=== PATIENT | female | born 1980 | race Caucasian/White ===

== ENCOUNTER 2018-06-15 13:36 | Emergency (ER) | payer MEDICAID, OTHER ==
[~2018-06-15] VITALS: Wt 101.1 kg
[~2018-06-15 13:36] MED LIST: CEPH-443 PO; PRED20TA PO; PREN1CAP; PREN1TAB12
[2018-06-15 13:47] VITALS: BP 156/74; PULSE 109; RESP 20
[2018-06-15] MEDS ORDERED: ACETAMINOPHEN 500 MG TAB PO STA (14:53)
[2018-06-15] MEDS ORDERED: ONDANSETRON (ODT) 4 MG TAB ODT STA (14:53)
[2018-06-15] MEDS ORDERED: DICYCLOMINE 10 MG CAP PO ONE (15:00)
[2018-06-15] MEDS ORDERED: DICY10CA40 PO (15:03)
[2018-06-15] MEDS ORDERED: ACET500C5 PO (15:03)
[2018-06-15] MEDS ORDERED: ONDA4TAB14 PO (15:03)
--- NOTE | 2018-06-15 15:08 | ERD ---
ER Documentation Chief Complaint Chief Complaint NVD, L sided AP, 'bladder pain' since last PM. denies dysuria. HPI This is a 38-year-old female with a nonsignificant past medical history presents ED with complaints of nausea vomiting and diarrhea since last night. Patient admits to having multiple episodes of nonbilious nonbloody vomiting as well as roughly 10 episodes of nonbloody is diarrhea. Admits to some abdominal cramping associated with diarrhea. Patient denies eating any new food groups last night or anything questionable. Denies fever, chills, dysuria, melena, hematochezia, hemoptysis, hematemesis, chest pain, shortness breath and all other symptoms. Denies urinary symptoms despite what chief complaint states. ROS All systems reviewed and are negative except as per history of present illness. Medications Home Meds Active Scripts Acetaminophen* (Tylophen*) 500 Mg Capsule, 1 CAP PO Q6H PRN for PAIN AND OR ELEVATED TEMP, #20 CAP Prov:LIZZY CAMERON PA-C 06/15/18 Dicyclomine HCl (Dicyclomine HCl) 10 Mg Capsule, 10 MG PO TID PRN for ABDOMINAL CRAMPING, #20 CAP Prov:LIZZY CAMERON PA-C 06/15/18 Ondansetron (Ondansetron Odt) 4 Mg Tab.rapdis, 4 MG PO Q6H PRN for NAUSEA AND/OR VOMITING, #10 TAB Prov:LIZZY CAMERON PA-C 06/15/18 Cephalexin* (Keflex*) 500 Mg Capsule, 500 MG PO QID for 5 Days, CAP Prov:KHURRAM DUGGAN DO 10/28/15 Prednisone* (Prednisone*) 20 Mg Tab, 60 MG PO DAILY for 3 Days, TAB Prov:LEJORGE LUISOSAPOSTOLOS ALeila DO 10/28/15 Reported Medications Vit/Iron,Carb/Ivan/Fa (Prena-Cap Capsule) 1 Cap Capsule 11/23/09 Vit/Fe Fumarate/Fa ( 1-1 Tablet) 1 Tab Tablet 11/23/09 Allergies Allergies: Coded Allergies: No Known Allergy (Verified Allergy, Unknown, 11/23/09) PMhx/Soc Medical and Surgical Hx: pt denies Medical Hx, pt denies Surgical Hx History of Surgery: No Anesthesia Reaction: No Hx Neurological Disorder: No Hx Respiratory Disorders: No Hx Cardiac Disorders: No Hx Psychiatric Problems: No Hx Miscellaneous Medical Probl: No Hx Alcohol Use: No Hx Substance Use: No Hx Tobacco Use: No Smoking Status: Never smoker Physical Exam Vitals Vital Signs Date Temp Pulse Resp B/P (MAP) Pulse Ox O2 O2 Flow FiO2 Time Delivery Rate 06/15/18 99.9 109 20 156/74 96 13:47 (101) Physical Exam Physical Exam Vitals signs: Reviewed by me. General: Well developed, well nourished, in no acute distress. Patient is awake and alert. Head: Normocephalic, atraumatic. Eyes: Normal conjunctiva, Pupils PERRLA, EOM intact grossly ENT: Pharynx is clear, Moist mucous membranes, external ears, nose and mouth no rmal Neck: Supple, no masses, lymphadenopathy or JVD Respiratory: Clear to auscultation bilaterally with no wheezing, rhonchi, rales, no distress Cardiovascular: RRR, no murmurs, rubs, or gallops Abdominal: Soft, obese, no peritoneal signs, no rigidity, no surgical abdomen, bowel sounds present all 4 quadrants, nontender light deep palpation all 4 quadrants, no suprapubic tenderness, McBurney's point nontender, no rebound tenderness, Lopes sign negative Back: No midline tenderness. No flank tenderness Neurologic: Alert and oriented, moving all extremities, normal speech, no focal weakness, no cerebellar signs. Normal mentation Skin: warm and dry, No rash Psych: Normal mood Results 24 hrs Current Medications Medications Dose Sig/Jesús Start Time Status Last (Trade) Ordered Route PRN Stop Time Admin Dose Reason Admin Dicyclomine 10 mg ONCE ONCE 06/15/18 DC 06/15/18 HCl PO 15:00 15:01 (Bentyl) 06/15/18 15:01 Ondansetron 4 mg ONCE STAT 06/15/18 DC 06/15/18 HCl (Zofran ODT 14:53 15:01 Odt) 06/15/18 14:55 1,000 mg ONCE STAT 06/15/18 DC 06/15/18 Acetaminophen PO 14:53 15:01 (Tylenol 06/15/18 14:55 Tab) Procedures/MDM ER COURSE: The patient was given Zofran and dicyclomine The medication was well tolerated and the patient reports improvement in symptoms. The patient was stable throughout ED course. I kept the patient and/or family informed of laboratory and diagnostic imaging results throughout the emergency room course. The patient was promptly evaluated and a treatment plan was devised based on H&P and other data. This plan was discussed with the patient who agreed and had no further questions or concerns prior to discharge. MEDICAL DECISION MAKING: This is a 38-year-old female who presents ED with nausea, vomiting, diarrhea since last night. This is likely a gastroenteritis. Patient is resting peacefully in room and has moist mucous membranes and good skin turgor. I doubt serious electrolyte abnormality or dehydration. Patient was given Zofran in the ED . Patient had no episodes of vomiting in the emergency department. Patient's abdomen is nontender to palpation during Examination and at discharge so i doubt gastro intestinal emergency. History and physical examination other data not consistent with emergent processes including but not limited to cholecystitis, appendicitis, small bowel obstruction, perforated viscus, septic stone, obstructive pylenephritis, sepsis, ovarian torsions, tuboovarian abscess, ectopic , among others. Patient's vitals are stable she can be managed with close outpatient follow-up. Advised patient to follow-up with primary care in 48 hours. Return to ED with any worsening symptoms DISPOSITION PLAN: We discussed follow up with the patient's primary care doctor within 24 to 48 hours. Patient counseled regarding my diagnostic impression and care plan. Prior to discharge all questions answered. Pt agrees with treatment plan and understands strict return precautions. Precautionary instructions provided including instructions to return to the ER if not improving or for any worsening or changing symptoms or concerns. SPECIALIST FOLLOW UP RECOMMENDED: None Patient has been advised to follow up with primary care in 1-2 days. Disclaimer: Inadvertent spelling and grammatical errors are likely due to EHR/dictation software use and do not reflect on the overall quality of patient care. Also, please note that the electronic time recorded on this note does not necessarily reflect the actual time of the patient encounter. Blood Pressure Assessment: Patient's blood pressure was elevated (>120/80) but appears stable without evidence of hypertension emergency or urgency. The patient was counseled about the risks of hypertension and urged to pursue outpatient monitoring and therapy within a week with their primary care physician. Departure Diagnosis: Primary Impression: Nausea, vomiting and diarrhea Condition: Stable Patient Instructions: Nausea and Vomiting-Adult, Diet, Vomiting Or Diarrhea [6Yr-Adult], Gastroenteritis, Viral (6Y-Adult) Referrals: COMMUNITY CLINICS YOU HAVE RECEIVED A MEDICAL SCREENING EXAM AND THE RESULTS INDICATE THAT YOU DO NOT HAVE A CONDITION THAT REQUIRES URGENT TREATMENT IN THE EMERGENCY DEPARTMENT. FURTHER EVALUATION AND TREATMENT OF YOUR CONDITION CAN WAIT UNTIL YOU ARE SEEN IN YOUR DOCTORS OFFICE WITHIN THE NEXT 1-2 DAYS. IT IS YOUR RESPONSIBILITY TO MAKE AN APPOINTMENT FOR FOLOW-UP CARE. IF YOU HAVE A PRIMARY DOCTOR --you should call your primary doctor and schedule an appointment IF YOU DO NOT HAVE A PRIMARY DOCTOR YOU CAN CALL OUR PHYSICIAN REFERRAL HOTLINE AT IF YOU CAN NOT AFFORD TO SEE A PHYSICIAN YOU CAN CHOSE FROM THE FOLLOWING FORMERLY [facility] [address] [facility] [address] [facility] [address] [facility] [address] [facility] [address] [facility] [facility] [address] Additional Instructions: Patient advised to return to the ED immediately for new or worsening symptoms. Patient advised to follow up with primary care provider in the next 24-48 hours. Patient verbalized understanding and agrees with treatment plan and course of action. If patient has no primary care they may follow up with one of the [facility] clinics listed on the following page or one of the options listed below [facility] [address] [place] [address] or [facility] [address] [place] [address] or [facility] [address] [place] [address] LIZZY CAMERON PA-C Jun 15, 2018 15:08
== END 2018-06-15 15:28 | disposition home or self-care (01) ==
LOC: FTE 13:36
DX: R11.2 Nausea with vomiting, unspecified (principal); R19.7 Diarrhea, unspecified
CPT/HCPCS: Z7502; Z7610; 99283